=== PATIENT | male | born 1985 | race Caucasian/White ===

== ENCOUNTER 2021-09-24 01:32 | Outpatient (CLI) | payer MEDICARE, MEDICAID, SELFPAY ==
--- NOTE | 2021-09-24 08:00 | DI.US_ITS ---
Exam(s) US ABDOMEN LIMITED EXAM: US ABDOMEN LIMITED CLINICAL HISTORY: RUQ PAIN R10.11 TECHNIQUE: Ultrasound performed using standard protocol. COMPARISON: No exams were available for comparison FINDINGS: Examination was limited by the patient's body habitus and overlying bowel gas. Pancreas was nonvisua lized. There is increased echogenicity and decreased through penetration of the hepatic parenchyma c onsistent with hepatic steatosis. There is borderline hepatomegaly. Portal venous flow is hepatopet al. Gallbladder is contracted, no gross cholelithiasis identified, small stones might not be visualized d ue to the contracted status. No biliary dilatation seen. Right kidney is unremarkable in appearance with no hydronephrosis or nephrolithiasis. IMPRESSION: Appearances consistent with hepatic steatosis, no other specific findings. DATA REPOSITORY:
== END 2021-09-24 01:52 ==
PROVIDERS: Visit Provider Family Medicine
DX: R10.11 Right upper quadrant pain (principal); K76.0 Fatty (change of) liver, not elsewhere classified
CPT/HCPCS: 76705